=== PATIENT | female | born 1970 | race Caucasian/White ===

== ENCOUNTER 2019-01-07 12:20 | Emergency (ER) | payer MEDICAID ==
[2019-01-07] MEDS ORDERED: predniSONE 20 MG TAB PO ONE (12:38)
--- NOTE | 2019-01-07 12:42 | EDPHY ---
H & P Stated Complaint: Lower back pain x 3 days, worse after fall today Time Seen by Provider: 01/07/19 12:31 HPI/ROS: CHIEF COMPLAINT: Left low back HISTORY OF PRESENT ILLNESS: Patient is a 48-year-old female with a history of chronic low back pain. She states that she has been taking cyclobenzaprine and gabapentin from her primary doctor for the last several months without improvement. She states that it is getting gradually worse. She denies radiation down her legs. She denies incontinence. She denies weakness or numbness or paralysis. She denies recent trauma. She denies fever. She does not have any immuno compromising conditions. Severity: Moderate Modifying factors: None REVIEW OF SYSTEMS: Constitutional: denies: chills, fever, recent illness, recent injury EENTM: denies: blurred vision, double vision, nose congestion Respiratory: denies: cough, shortness of breath Cardiac: denies: chest pain, irregular heart rate, lightheadedness, palpitations Gastrointestinal/Abdominal: denies: abdominal pain, diarrhea, nausea, vomiting, blood streaked stools Genitourinary: denies: dysuria, frequency, hematuria, pain Musculoskeletal: See HPI Skin: denies: lesions, rash, jaundice, bruising Neurological: denies: headache, numbness, paresthesia, tingling, dizziness, weakness Hematologic/Lymphatic: denies: blood clots, easy bleeding, easy bruising Immunologic/allergic: denies: HIV/AIDS, transplant 10 systems reviewed and negative except as noted EXAM: GENERAL: Well-appearing, well-nourished and in no acute distress. HEAD: Atraumatic, normocephalic. EYES: Pupils equal round and reactive to light, extraocular movements intact, sclera anicteric, conjunctiva are normal. ENT: TMs normal, nares patent, oropharynx clear without exudates. Moist mucous membranes. NECK: Normal range of motion, supple without lymphadenopathy or JVD. LUNGS: Breath sounds clear to auscultation bilaterally and equal. No wheezes rales or rhonchi. HEART: Regular rate and rhythm without murmurs, rubs or gallops. ABDOMEN: Soft, nontender, normoactive bowel sounds. No guarding, no rebound. No masses appreciated. BACK: Left-sided paravertebral muscle pain in the lumbar region, no spinal tenderness, step-offs or deformities EXTREMITIES: Normal range of motion, no pitting or edema. No clubbing or cyanosis. NEUROLOGICAL: Cranial nerves II through XII grossly intact. Normal speech, normal gait. 5/5 strength, normal movement in all extremities, normal sensation , normal reflexes PSYCH: Normal mood, normal affect. SKIN: Warm, dry, normal turgor, no visible rashes or lesions. Source: Patient Exam Limitations: No limitations - Personal History LMP (Females 10-55): IUD In Place Current Tetanus Diphtheria and Acellular Pertussis (TDAP): Yes Tetanus Vaccine Date: within 10 years - Medical/Surgical History Hx Asthma: Yes Hx Chronic Respiratory Disease: No Hx Diabetes: No Hx Cardiac Disease: No Hx Renal Disease: No Hx Cirrhosis: No Hx Alcoholism: No Hx HIV/AIDS: No Hx Splenectomy or Spleen Trauma: No Other PMH: Chronic back pain, lateral epicondyl release L arm, L arm tendonitis , GERD, chronic gastritis, colitis, gastric ulcers, asthma - Family History Significant Family History: No pertinent family hx - Social History Smoking Status: Never smoked Alcohol Use: None Constitutional: Initial Vital Signs Temperature (C) 36.7 C 01/07/19 12:26 Heart Rate 63 01/07/19 12:26 Respiratory Rate 18 01/07/19 12:26 Blood Pressure 144/89 H 01/07/19 12:26 O2 Sat (%) 95 01/07/19 12:26 O2 Delivery Mode Room Air Allergies/Adverse Reactions: naproxen [From Naprosyn] Allergy (Verified 01/07/19 12:31) Pt reports "passing out" salmon Allergy (Uncoded 01/07/19 12:31) Pt reports "passing out" Home Medications: Medication Instructions Recorded Cyclobenzaprine 01/07/19 FLUoxetine 01/07/19 Gabapentin 01/07/19 Omeprazole 01/07/19 Ranitidine HCl 01/07/19 predniSONE 60 mg PO DAILY #9 tab 01/07/19 Medical Decision Making - Diagnostics Imaging Results: Imaging Impressions Lumbar Spine X-Ray 01/07/19 12:37 Impression: Negative. No acute compression fracture. Imaging: Discussed imaging studies w/ call or contact centre team leader Radiologist ED Course/Re-evaluation: Patient has chronic back pain that she describes as muscular but has not been well controlled despite muscle relaxants. She has not previously had x-rays done. She does not have any symptoms consistent with spinal cord compression or infection. Will perform x-rays and treat with steroids for inflammation and refer her to a back specialist. Differential Diagnosis: Partial list of the Differential diagnosis considered include but were not limited to; lumbar muscle strain, radiculopathy, arthritis and although unlikely based on the history and physical exam, I also considered abscess, tumor, fracture, spinal cord compression, CVA. I discussed these differential diagnoses and the plan with the patient as well as the usual and expected course. The patient understands that the diagnosis is provisional and that in medicine we are not always correct and that further workup is often warranted. Usual and customary warnings were given. All of the patient's questions were answered. The patient was instructed to return to the emergency department should the symptoms at all worsen or return, otherwise to followup with the physician as we discussed. - Data Points Medications Given: Discontinued Medications Acetaminophen (Tylenol) 1,000 mg PO EDNOW ONE Stop: 01/07/19 12:56 Last Admin: 01/07/19 12:58 Dose: 1,000 mg Prednisone (Prednisone) 60 mg PO EDNOW ONE Stop: 01/07/19 12:39 Last Admin: 01/07/19 12:50 Dose: 60 mg Departure - Departure Disposition: Home, Routine, Self-Care Clinical Impression: Chronic low back pain Qualifiers: Back pain laterality: left Sciatica presence: without sciatica Qualified Code(s ): M54.5 - Low back pain; G89.29 - Other chronic pain; G89.29 - Other chronic pain Condition: Fair Instructions: Chronic Back Pain (DC) Referrals: Denice Kaur MD [Primary Care Provider] - As per Instructions Olu Martins MD [Medical Doctor] - 5-7 days, call for appt. Prescriptions: predniSONE 60 mg PO DAILY #9 tab
[2019-01-07] MEDS ORDERED: ACETAMINOPHEN 500 MG TAB PO ONE (12:55)
[2019-01-07 13:24] VITALS: BP 136/81
== END 2019-01-07 13:20 | disposition home or self-care (01) ==
LOC: CED 12:20
DX: M54.5 Low back pain (principal); G89.29 Other chronic pain
CPT/HCPCS: 72100-PO; 99283-ER; J7512